=== PATIENT | female | born 1990 | race Caucasian/White ===

== ENCOUNTER 2017-05-12 18:55 | Inpatient (IN) | payer OTHER ==
[2017-05-12] MEDS ORDERED: Metoclopramide 10 MG/2 ML SDV ONE (19:31)
[2017-05-12] MEDS ORDERED: Citric Acid/Sodium Citrate Solution 30 ML Cup ONE (19:31)
[2017-05-12] MEDS ORDERED: Bupivacaine 0.5% 30 ML SDV ONE (19:34)
[2017-05-12] MEDS ORDERED: ceFAZolin 2 GM in Premix Bag 1 BAG IV ONE (19:41)
[2017-05-12] MEDS ORDERED: Sodium Chloride 0.9% 10 ML Syringe FLUSH PRN ×2 (19:41→21:00)
[2017-05-12] MEDS ORDERED: Metoclopramide 10 MG/2 ML SDV IVPUSH ONE (19:41)
[2017-05-12] MEDS ORDERED: Citric Acid/Sodium Citrate Solution 30 ML Cup PO ONE (19:41)
[2017-05-12] MEDS ORDERED: Oxytocin/Lactated Ringers 10 UNIT/1,000 ML BAG IV SCH (19:45)
[2017-05-12] MEDS ORDERED: Ondansetron 4 MG/2 ML SDV ONE (19:49)
[2017-05-12] MEDS ORDERED: Morphine PF 10 MG/10 ML SDV ONE (19:49)
[2017-05-12] MEDS ORDERED: Lactated Ringers 2,000 ML ONE (19:49)
[2017-05-12] MEDS ORDERED: ceFAZolin 1 GM Vial ONE (19:49)
[2017-05-12] MEDS ORDERED: Oxytocin 10 Units/1 ML SDV ONE ×2 (19:49→20:21)
[2017-05-12] MEDS ORDERED: Ketorolac 30 MG/ML SDV ONE (19:49)
--- NOTE | 2017-05-12 19:50 | PCM.LDHP ---
L&D History of Present Illness - General Date of Service: 05/12/17 Admit Problem/Dx: Patient Status Order with Admit Dx/Problem 05/12/17 19:41 Patient Status [ADT] Routine Admission Diagnosis/Problem Admission Diagnosis/Problem Source of Information: Patient History Limitations: Reports: No Limitations - History of Present Illness Introduction:: 26-year-old 000 patient GREG 05/31/1737+ weeks estimated gestational age patient is a [facility] blood type is O+ antibody screen negative rubella is immune hemoglobin hematocrit 31 741.2 and 11/08/16 lateness 183,000 hepatitis B surface antigen was negative the HIV was normal on 11/08/16 GC and chlamydia negative on 11/08/16 urine culture normal 11/08/16 patient presented to labor and delivery with irregular contractions heart rate 167 decreased beat-to- beat variability with subtle decelerations and scalp stimulation produced a deceleration relevant acceleration cervix is closed and talk with the patient and her and both in agreement with proceeding with section as patient is not close to delivery Timing/Duration: Reports: minutes: Location, : Reports: Abdomen Severity: Mild Pain Score: 7 Improves with: Reports: None Worsens with: Reports: None Associated Symptoms: Reports: N - Related Data Allergies/Adverse Reactions: Allergies Allergy/AdvReac Type Severity Reaction Status Date / Time No Known Allergies Allergy Verified 05/12/17 19:40 Past Medical History : 1 Para: 0 (0000) LMP (Approximate): H&P Review of Systems - Review of Systems: Review Of Systems: See Below General: Reports: No Symptoms HEENT: Reports: No Symptoms Pulmonary: Reports: No Symptoms Cardiovascular: Reports: No Symptoms Gastrointestinal: Reports: No Symptoms Genitourinary: Reports: No Symptoms Musculoskeletal: Reports: No Symptoms Skin: Reports: No Symptoms Psychiatric: Reports: No Symptoms Neurological: Reports: No Symptoms Hematologic/Lymphatic: Reports: No Symptoms Immunologic: Reports: No Symptoms L&D Exam - Exam Exam: See Below - OB Specific Fundal Height In cm: 37 Contraction Duration (sec): 60 Contraction Intensity: Mild to Moderate Movement: Active Heart Tones: Present Heart Tones per Min: 170 Heart Rate (FHR) Variability: Minimal (0-5 bpm) Presentation: Vertex - Hdz Score Hdz Score Cervix Position: Posterior Hdz Score Consistency: Soft Hdz Score Effacement: 0-30% Hdz Score Dilation: Closed Hdz Score Infant's Station: -1 ,0 Hdz Score Total: 4 - Exam General: Alert, Oriented HEENT: Mucosa Moist & [place] Neck: Supple, Trachea Midline Lungs: Clear to Auscultation, Normal Respiratory Effort Cardiovascular: Regular Rate, Regular Rhythm Abdomen: Normal Bowel Sounds, Soft, Pelvis Stable Genitourinary: Normal external exam Extremities: Normal Inspection Skin: Warm, Dry, Intact Psychiatric: Alert, Normal Affect, Normal Mood - Problem List (1) 37 weeks gestation of SNOMED Code(s): 83851808 ICD Code: Z3A.37 - 37 WEEKS GESTATION OF Status: Acute Current Visit: Yes (2) Non-reassuring heart rate with late deceleration SNOMED Code(s): 137851222, 674817200 ICD Code: O76 - ABNLT IN HEART RATE AND RHYTHM COMP LABOR AND DELIVERY Status: Acute Current Visit: Yes Problem List Initiated/Reviewed/Updated: No Orders Last 24hrs: Active Orders 24 hr Category Date Time Status Patient Status [ADT] Routine ADT 05/12/17 19:41 Active Communication Order [RC] ROUTINE Care 05/12/17 19:41 Active Heart Tones [RC] PER UNIT ROUTINE Care 05/12/17 19:41 Active Peripheral IV Care [RC] . DIRECTED Care 05/12/17 19:41 Active Procedure Site Prep Instruct [RC] ASDIRECTED Care 05/12/17 19:41 Active Urinary Catheter Assessment [RC] ASDIRECTED Care 05/12/17 19:41 Active Verify Patient Consent Obtain [RC] PER UNIT ROUTINE Care 05/12/17 19:41 Active Vital Signs [RC] PFP Care 05/12/17 19:41 Active Nothing Per Oral Diet [DIET] Diet 05/12/17 Dinner Active CBC WITH AUTO DIFF [HEME] Stat Lab 05/12/17 19:41 Ordered TYPE AND SCREEN [BBK] Routine Lab 05/12/17 19:41 Ordered Citric Acid/Sodium Citrate [Bicitra Solution] Med 05/12/17 19:41 Once 30 ml PO ONETIME ONE Lactated Ringers [Ringers, Lactated] 1,000 ml Med 05/12/17 19:45 Ordered IV ASDIRECTED Metoclopramide [Reglan] Med 05/12/17 19:41 Once 10 mg IVPUSH ONETIME ONE Oxytocin/Lactated Ringers [Pitocin in LR 10 Units/1,000 Med 05/12/17 19:45 Ordered ML] 10 unit in 1,000 ml IV ASDIRECTED Sodium Chloride 0.9% [Saline Flush] Med 05/12/17 19:41 Ordered 10 ml FLUSH ASDIRECTED PRN ceFAZolin [Ancef] 2 gm Med 05/12/17 19:41 Ordered Premix Bag 1 bag IV ONETIME Peripheral IV Insertion Adult [OM.PC] Routine Oth 05/12/17 19:41 Ordered Schedule Procedure [COMM] Per Unit Routine Oth 05/12/17 19:41 Ordered Resuscitation Status Routine Resus Stat 05/12/17 19:41 Ordered Medication Orders Citric Acid/Sodium Citrate (Bicitra Solution) 30 ml PO ONETIME ONE Stop: 05/12/17 19:42 Lactated Ringer's (Ringers, Lactated) 1,000 mls @ 125 mls/hr IV ASDIRECTED KELLY Oxytocin/Lactated Ringer's (Pitocin In Lr 10 Units/1,000 Ml) 10 unit in 1,000 mls @ 100 mls/hr IV ASDIRECTED KELLY PRN Reason: Protocol Cefazolin Sodium/Dextrose 2 gm (/ Premix) 50 mls @ 100 mls/hr IV ONETIME ONE Stop: 05/12/17 20:10 Metoclopramide HCl (Reglan) 10 mg IVPUSH ONETIME ONE Stop: 05/12/17 19:42 Sodium Chloride (Saline Flush) 10 ml FLUSH ASDIRECTED PRN PRN Reason: Keep Vein Open Assessment/Plan Comment:: Plan considering patient's nonreassuring heart rate pattern and lack of cervical dilatation will proceed with section
[2017-05-12] MEDS: Lactated Ringers 1,000 ML IV SCH ×2 (19:54→19:55)
[2017-05-12] MEDS ORDERED: fentaNYL 100 MCG/2 ML SDV IVPUSH PRN (20:23)
[2017-05-12] MEDS ORDERED: Meperidine PF 50 MG/ML Syringe IVPUSH PRN (20:23)
[2017-05-12] MEDS ORDERED: Ondansetron 4 MG/2 ML SDV IVPUSH PRN (20:23)
[2017-05-12] MEDS ORDERED: diphenhydrAMINE 50 MG/ML SDV IVPUSH PRN ×2 (20:23→21:00)
[2017-05-12] MEDS ORDERED: ePHEDrine 50 MG/ML SDV IVPUSH PRN ×2 (20:23→21:00)
--- NOTE | 2017-05-12 20:51 | PCM.POSTAN ---
POST ANESTHESIA ASSESSMENT - MENTAL STATUS Mental Status: alert, oriented - VITAL SIGNS Pulse Rate: 73 SaO2: 99 Resp Rate: 14 Blood Pressure: 105/60 Temperature: 97.3 F - RESPIRATORY Respiratory Status: respiratory rate WNL, airway patent, O2 saturation stable, supplemental oxygen - CARDIOVASCULAR CV Status: pulse rate WNL, blood pressure stable - GASTROINTESTINAL GI Status: no symptoms - PAIN Pain Score: 0 - POST OP HYDRATION Hydration Status: adequate & stable
--- NOTE | 2017-05-12 20:52 | PCM.OPNOTE ---
- General Post-Op/Procedure Note Date of Surgery/Procedure: 05/12/17 Operative Procedure(s): Low segment transverse Pre Op Diagnosis: 37 weeks estimated gestational age, nonreassuring heart rate pattern with tachycardia and decreased [id number] variability and decelerations Post-Op Diagnosis: Same plus nuchal cord 3 tight Anesthesia Technique: Spinal Primary Surgeon: Rodo Rice Secondary Surgeon: Hammad (Son RN) Anesthesia Provider: Geri Daniels [employer] Agent: Samreen Cruz (MS3) Fluid Replacement, Intraop: 1,500 Output, Urine Amount: 700 EBL in mLs: 800 Drain/Tube Comments:: Irizarry catheter Complications: None Condition: Good Free Text/Narrative:: Patient was transported to operating room #1 and placed under spinal anesthesia in the supine position with wedge under the right hip and right flank Irizarry catheter placed to gravity drainage prepared and draped in a sterile fashion timeout performed confirming name date of and procedure as section adequate level of anesthesia was confirmed was brought to the operating room 20 mL of 0.5% Marcaine without epinephrine injected area of the planned Pfannenstiel incision and the Pfannenstiel incision was made and care was sharp section to into the anterior fascia the peritoneal cavity was entered without difficulty bladder flap created pushed caudad low segment transverse section was performed delivering a male born at [address] Amor daycare director in attendance at delivery Apgars 5/9 weight 6 lbs. 2 oz. nuchal cord 3 tight the nuchal cord could not be reduced over the shoulders or over the head crossclamped twice cut and the triple cord was reduced head delivered shoulders followed shortly without difficulty and handed to Dr. Amor. Cord blood collected from normal three-vessel cord placenta removed manually and the cavity inspected remnants of membranes removed sponge needle pack asthma sharp count correct 1 cervical patency assured and the uterine incision closed in 2 layers first layer running locking suture of #0 Monocryl second layer horizontal imbricating modified Lembert 0 Monocryl both tubes and ovaries were normal clot screen from the gutters and cul -de-sac the uterine incision inspected no bleeding uterus replaced into the abdominal cavity reinspected at the operative site no bleeding sponge needle pack asthma sharp count correct 2 and the anterior fascia closed with #1 PDS running suture 3 interrupted sutures of 0 Monocryl placed in the subcutaneous tissue and the skin was closed with subcuticular 3-0 Monocryl on Dirk needle Dermabond Preneo applied no blood transfusions required clots were cleaned from the vagina at the end of the procedure and patient transported postanesthesia care unit in satisfactory condition
--- NOTE | 2017-05-12 20:53 | PCM.PREANE ---
Preanesthetic Assessment - Anesthesia/Transfusion/Family Hx Anesthesia History: No Prior Anesthesia Family History of Anesthesia Reaction: No Transfusion History: No Prior Transfusion(s) - Review of Systems General: No Symptoms Pulmonary: No Symptoms Cardiovascular: No Symptoms Gastrointestinal: No symptoms Neurological: No Symptoms Other: Reports: None - Physical Assessment NPO Status Date: 05/12/17 NPO Status Time: 19:00 Pulse: 73 O2 Sat by Pulse Oximetry: 99 Respiratory Rate: 14 Blood Pressure: 105/60 Temperature: 97.3 F Vital Signs: Last Vital Signs Temp 97.3 F 05/12/17 20:51 Pulse 73 05/12/17 20:51 Resp 14 05/12/17 20:51 BP 105/60 05/12/17 20:51 Pulse Ox 99 05/12/17 20:51 Height: 5 ft 6 in Weight: 73.936 kg ASA Class: 2E Mental Status: Alert & Oriented x3 Airway Class: Mallampati = 1 Dentition: Reports: Normal Dentition Thyro-Mental Finger Breadths: 3 Mouth Opening Finger Breadths: 3 ROM/Head Extension: Full Lungs: Clear to auscultation, Normal respiratory effort Cardiovascular: Regular Rate, Regular Rhythm, No Murmurs - Lab Values: Laboratory Last Values WBC 10.77 K/mm3 (3.98-10.04) H 05/12/17 19:45 RBC 3.67 M/mm3 (3.98-5.22) L 05/12/17 19:45 Hgb 9.8 gm/L (11.2-15.7) L 05/12/17 19:45 Hct 30.6 % (34.1-44.9) L 05/12/17 19:45 MCV 83.4 fl (79.4-94.8) 05/12/17 19:45 MCH 26.7 pg (25.6-32.2) 05/12/17 19:45 MCHC 32.0 g/dl (32.2-35.5) L 05/12/17 19:45 RDW Std Deviation 39.6 fL (36.4-46.3) 05/12/17 19:45 Plt Count 187 K/mm3 (182-369) 05/12/17 19:45 MPV 10.3 fl (9.4-12.3) 05/12/17 19:45 Neut % (Auto) 71.5 % (34.0-71.1) H 05/12/17 19:45 Lymph % (Auto) 15.6 % (19.3-51.7) L 05/12/17 19:45 Steele % (Auto) 12.0 % (4.7-12.5) 05/12/17 19:45 Eos % (Auto) 0.4 (0.7-5.8) L 05/12/17 19:45 Baso % (Auto) 0.1 % (0.1-1.2) 05/12/17 19:45 Neut # (Auto) 7.71 K/mm3 (1.56-6.13) H 05/12/17 19:45 Lymph # (Auto) 1.68 K/mm3 (1.18-3.74) 05/12/17 19:45 Steele # (Auto) 1.29 K/mm3 (0.24-0.36) H 05/12/17 19:45 Eos # (Auto) 0.04 K/mm3 (0.04-0.36) 05/12/17 19:45 Baso # (Auto) 0.01 K/mm3 (0.01-0.08) 05/12/17 19:45 - Allergies Allergies/Adverse Reactions: Allergies Allergy/AdvReac Type Severity Reaction Status Date / Time No Known Allergies Allergy Verified 05/12/17 19:40 - Blood Blood Available: No - Acknowledgements Anesthesia Type Planned: Spinal Pt an Appropriate Candidate for the Planned Anesthesia: Yes Alternatives and Risks of Anesthesia Discussed w Pt/Guardian: Yes Pt/Guardian Understands and Agrees with Anesthesia Plan: Yes PreAnesthesia Questionnaire - Past Health History Medical/Surgical History: Denies Medical/Surgical History Cardiovascular History: Reports: None Respiratory History: Reports: None Gastrointestinal History: Reports: GERD (with preg) - History Comment History Comment: vits for home meds and tums prn - SUBSTANCE USE Smoking Status *Q: Never Smoker Tobacco Use Within Last Twelve Months: No Second Hand Smoke Exposure: No Days Per Week of Alcohol Use: 0 Recreational Drug Use History: No - CURRENT (IN HOUSE) MEDS Current Meds: Current Medications Diphenhydramine HCl (Benadryl) 25 mg IVPUSH Q6H PRN PRN Reason: pruritis Ephedrine Sulfate (Ephedrine Sulfate) 5 mg IVPUSH ASDIRECTED PRN PRN Reason: Hypotension Fentanyl (Sublimaze) 50 mcg IVPUSH Q5M PRN PRN Reason: Pain Lactated Ringer's (Ringers, Lactated) 1,000 mls @ 125 mls/hr IV ASDIRECTED [facility] Last Admin: 05/12/17 19:55 Dose: 125 mls/hr Oxytocin/Lactated Ringer's (Pitocin In Lr 10 Units/1,000 Ml) 10 unit in 1,000 mls @ 100 mls/hr IV ASDIRECTED [facility] PRN Reason: Protocol Meperidine HCl (Demerol) 12.5 mg IVPUSH ONETIME PRN PRN Reason: shivering Stop: 05/13/17 20:24 Ondansetron HCl (Zofran) 4 mg IVPUSH ONETIME PRN PRN Reason: Nausea/Vomiting Sodium Chloride (Saline Flush) 10 ml FLUSH ASDIRECTED PRN PRN Reason: Keep Vein Open Discontinued Medications Bupivacaine HCl (Marcaine 0.5%) Confirm Administered Dose 30 ml .ROUTE .STK-MED ONE Stop: 05/12/17 19:35 Cefazolin Sodium (Ancef) Confirm Administered Dose 2 gm .ROUTE .STK-MED ONE Stop: 05/12/17 19:50 Citric Acid/Sodium Citrate (Bicitra Solution) Confirm Administered Dose 30 ml .ROUTE .STK-MED ONE Stop: 05/12/17 19:32 Citric Acid/Sodium Citrate (Bicitra Solution) 30 ml PO ONETIME ONE Stop: 05/12/17 19:42 Last Admin: 05/12/17 19:53 Dose: 30 ml Lactated Ringer's (Ringers, Lactated) Confirm Administered Dose 2,000 mls @ as directed .ROUTE .STK-MED ONE Stop: 05/12/17 19:50 Cefazolin Sodium/Dextrose 2 gm (/ Premix) 50 mls @ 100 mls/hr IV ONETIME ONE Stop: 05/12/17 20:10 Ketorolac Tromethamine (Toradol) Confirm Administered Dose 30 mg .ROUTE .STK- MED ONE Stop: 05/12/17 19:50 Metoclopramide HCl (Reglan) Confirm Administered Dose 10 mg .ROUTE .STK-MED ONE Stop: 05/12/17 19:32 Metoclopramide HCl (Reglan) 10 mg IVPUSH ONETIME ONE Stop: 05/12/17 19:42 Last Admin: 05/12/17 19:53 Dose: 10 mg Morphine Sulfate (Duramorph Pf) Confirm Administered Dose 10 mg .ROUTE .STK-MED ONE Stop: 05/12/17 19:50 Ondansetron HCl (Zofran) Confirm Administered Dose 4 mg .ROUTE .STK-MED ONE Stop: 05/12/17 19:50 Oxytocin (Pitocin) Confirm Administered Dose 10 unit .ROUTE .STK-MED ONE Stop: 05/12/17 19:50 Oxytocin (Pitocin) Confirm Administered Dose 10 unit .ROUTE .STK-MED ONE Stop: 05/12/17 20:22
[2017-05-12] MEDS ORDERED: Lanolin 100% Cream 7 GM Tube TOP PRN (21:00)
[2017-05-12] MEDS ORDERED: Dextrose 5%-Lactated Ringers 1,000 ML IV SCH (21:00)
[2017-05-12] MEDS ORDERED: Acetaminophen/oxyCODONE 325-5 MG Tab PO PRN (21:00)
[2017-05-12] MEDS ORDERED: Docusate Sodium 100 MG Cap PO PRN (21:00)
[2017-05-12] MEDS ORDERED: Dextrose 5%-0.45% NaCl 1,000 ML IV SCH (21:00)
[2017-05-12] MEDS ORDERED: Ondansetron 4 MG/2 ML SDV IV PRN (21:00)
[2017-05-12] MEDS ORDERED: Acetaminophen 325 MG Tab PO PRN (21:00)
[2017-05-12] MEDS ORDERED: Naloxone 0.4 MG/ML SDV IVPUSH PRN (21:00)
[2017-05-12] MEDS ORDERED: Calcium Carbonate 500 MG Tab.Chew PO PRN (23:48)
[2017-05-13] MEDS: Ketorolac 30 MG/ML SDV IVPUSH SCH ×3 (02:31→18:16)
[2017-05-13] MEDS: Simethicone 80 MG Tab.Chew PO SCH ×4 (02:39→18:16)
--- NOTE | 2017-05-13 08:27 | PCM.SN ---
- Free Text/Narrative Note: Post day 1 Afebrile incision normal uterus involuting normally no heavy vaginal bleeding no leg cramping
--- NOTE | 2017-05-13 15:22 | PCM48HPAN ---
Post Anesthesia Note - EVALUATION WITHIN 48HRS OF ANESTHETIC Vital Signs in Normal Range: Yes Patient Participated in Evaluation: Yes Respiratory Function Stable: Yes Airway Patent: Yes Cardiovascular Function Stable: Yes Hydration Status Stable: Yes Pain Control Satisfactory: Yes Nausea and Vomiting Control Satisfactory: Yes Mental Status Recovered: Yes - COMMENTS/OBSERVATIONS Free Text/Narrative:: Patient did not have any complaints. No residual LE weakness, headaches, or back pain.
[2017-05-13] MEDS ORDERED: Ketorolac 30 MG/ML SDV ONE (18:08)
[2017-05-14] MEDS: Simethicone 80 MG Tab.Chew PO SCH ×3 (01:07→13:29)
[2017-05-14] MEDS: Ibuprofen 600 MG Tab PO PRN ×2 (06:51→15:49)
--- NOTE | 2017-05-14 10:22 | PCM.SN ---
- Free Text/Narrative Note: POD#2 Afebrile, not heavy vaginal bleeding, doing well, will go home tomorrow.
[2017-05-15] MEDS: Simethicone 80 MG Tab.Chew PO SCH ×2 (03:48→11:03)
--- NOTE | 2017-05-15 07:38 | PCM.DCSUM1 ---
Discharge Summary - Hospital Course Free Text/Narrative:: [facility], [place], operated by [facility] Post-Op/Procedure Note Patient Name: TERESA CASTELLON Date of : 89 Patient Status: Inpatient Attending Provider: Rodo Rice Date: 05/12/17 20:45 Initialization Date: 05/12/17 20:45 - General Post-Op/Procedure Note Date of Surgery/Procedure: 05/12/17 Operative Procedure(s): Low segment transverse Pre Op Diagnosis: 37 weeks estimated gestational age, nonreassuring heart rate pattern with tachycardia and decreased [id number] variability and decelerations Post-Op Diagnosis: Same plus nuchal cord 3 tight Anesthesia Technique: Spinal Primary Surgeon: Rodo Rice Secondary Surgeon: Hammad (Son JUNE) Anesthesia Provider: Geri Daniels Shot Coat Tender: Samreen Cruz (MS3) Fluid Replacement, Intraop: 1,500 Output, Urine Amount: 700 EBL in mLs: 800 Drain/Tube Comments:: Irizarry catheter Complications: None Condition: Good Free Text/Narrative:: Patient was transported to operating room #1 and placed under spinal anesthesia in the supine position with wedge under the right hip and right flank Irizarry catheter placed to gravity drainage prepared and draped in a sterile fashion timeout performed confirming name date of and procedure as section adequate level of anesthesia was confirmed was brought to the operating room 20 mL of 0.5% Marcaine without epinephrine injected area of the planned Pfannenstiel incision and the Pfannenstiel incision was made and care was sharp section to into the anterior fascia the peritoneal cavity was entered without difficulty bladder flap created pushed caudad low segment transverse section was performed delivering a male born at [address] Amor clerk secretary in attendance at delivery Apgars 5/9 weight 6 lbs. 2 oz. nuchal cord 3 tight the nuchal cord could not be reduced over the shoulders or over the head crossclamped twice cut and the triple cord was reduced head delivered shoulders followed shortly without difficulty and handed to Dr. Amor. Cord blood collected from normal three-vessel cord placenta removed manually and the cavity inspected remnants of membranes removed sponge needle pack asthma sharp count correct 1 cervical patency assured and the uterine incision closed in 2 layers first layer running locking suture of #0 Monocryl second layer horizontal imbricating modified Lembert 0 Monocryl both tubes and ovaries were normal clot screen from the gutters and cul -de-sac the uterine incision inspected no bleeding uterus replaced into the abdominal cavity reinspected at the operative site no bleeding sponge needle pack asthma sharp count correct 2 and the anterior fascia closed with #1 PDS running suture 3 interrupted sutures of 0 Monocryl placed in the subcutaneous tissue and the skin was closed with subcuticular 3-0 Monocryl on Dirk needle Dermabond Preneo applied no blood transfusions required clots were cleaned from the vagina at the end of the procedure and patient transported postanesthesia care unit in satisfactory condition HPI Initial Comments: [facility], [place], operated by [facility] Post-Op/Procedure Note Patient Name: TERESA CASTELLON Date of : 89 Patient Status: Inpatient Attending Provider: Rodo Rice Date: 05/12/17 20:45 Initialization Date: 05/12/17 20:45 - General Post-Op/Procedure Note Date of Surgery/Procedure: 05/12/17 Operative Procedure(s): Low segment transverse Pre Op Diagnosis: 37 weeks estimated gestational age, nonreassuring heart rate pattern with tachycardia and decreased [id number]-hmcl variability and decelerations Post-Op Diagnosis: Same plus nuchal cord 3 tight Anesthesia Technique: Spinal Primary Surgeon: Rodo Rice Secondary Surgeon: Hammad Youngblood RN) Anesthesia Provider: Geri Daniels Shot Coat Tender: Samreen Cruz (MS3) Fluid Replacement, Intraop: 1,500 Output, Urine Amount: 700 EBL in mLs: 800 Drain/Tube Comments:: Irizarry catheter Complications: None Condition: Good Free Text/Narrative:: Patient was transported to operating room #1 and placed under spinal anesthesia in the supine position with wedge under the right hip and right flank Irizarry catheter placed to gravity drainage prepared and draped in a sterile fashion timeout performed confirming name date of and procedure as section adequate level of anesthesia was confirmed was brought to the operating room 20 mL of 0.5% Marcaine without epinephrine injected area of the planned Pfannenstiel incision and the Pfannenstiel incision was made and care was sharp section to into the anterior fascia the peritoneal cavity was entered without difficulty bladder flap created pushed caudad low segment transverse section was performed delivering a male born at [address] Amor clerk secretary in attendance at delivery Apgars 5/9 weight 6 lbs. 2 oz. nuchal cord 3 tight the nuchal cord could not be reduced over the shoulders or over the head crossclamped twice cut and the triple cord was reduced head delivered shoulders followed shortly without difficulty and handed to Dr. Amor. Cord blood collected from normal three-vessel cord placenta removed manually and the cavity inspected remnants of membranes removed sponge needle pack asthma sharp count correct 1 cervical patency assured and the uterine incision closed in 2 layers first layer running locking suture of #0 Monocryl second layer horizontal imbricating modified Lembert 0 Monocryl both tubes and ovaries were normal clot screen from the gutters and cul -de-sac the uterine incision inspected no bleeding uterus replaced into the abdominal cavity reinspected at the operative site no bleeding sponge needle pack asthma sharp count correct 2 and the anterior fascia closed with #1 PDS running suture 3 interrupted sutures of 0 Monocryl placed in the subcutaneous tissue and the skin was closed with subcuticular 3-0 Monocryl on Dirk needle Dermabond Preneo applied no blood transfusions required clots were cleaned from the vagina at the end of the procedure and patient transported postanesthesia care unit in satisfactory condition Brief History: [facility], [place], operated by [facility] . Post-Op/Procedure Note. Patient Name: TERESA CASTELLON [facility] Record Number: [id number]. Date of : [birth year]Patient Status: Inpatient. Attending Provider: Rodo Rice Number: [id number]. Date: 05/12/17 20:45Initialization Date: 20:45. - General Post-Op/Procedure Note. Date of Surgery/Procedure: . Operative Procedure(s): Low segment transverse . Pre Op Diagnosis: 37 weeks estimated gestational age, nonreassuring heart rate pattern with tachycardia and decreased hewi-ly-dvmu variability and decelerations. Post-Op Diagnosis: Same plus nuchal cord 3 tight. Anesthesia Technique: Spinal. Primary Surgeon: Rodo Rice. Secondary Surgeon: Hammad Youngblood RN). Anesthesia Provider: Geri Daniels. Shot Coat Tender: Samreen Cruz (MS3). Fluid Replacement, Intraop: 1,500. Output, Urine Amount: 700. EBL in mLs: 800. Drain/Tube Comments:: Irizarry catheter. Complications: None. Condition: Good. Free Text/Narrative:: Patient was transported to operating room #1 and placed under spinal anesthesia in the supine position with wedge under the right hip and right flank Irizarry catheter placed to gravity drainage prepared and draped in a sterile fashion timeout performed confirming name date of and procedure as section adequate level of anesthesia was confirmed was brought to the operating room 20 mL of 0.5% Marcaine without epinephrine injected area of the planned Pfannenstiel incision and the Pfannenstiel incision was made and care was sharp section to into the anterior fascia the peritoneal cavity was entered without difficulty bladder flap created pushed caudad low segment transverse section was performed delivering a male born at 2015 hrs. on Sundays05/12/17 Dr. Amor clerk secretary in attendance at delivery Apgars 5/9 weight 6 lbs. 2 oz. nuchal cord 3 tight the nuchal cord could not be reduced over the shoulders or over the head crossclamped twice cut and the triple cord was reduced head delivered shoulders followed shortly without difficulty and handed to Dr. Amor. Cord blood collected from normal three-vessel cord placenta removed manually and the cavity inspected remnants of membranes removed sponge needle pack asthma sharp count correct 1 cervical patency assured and the uterine incision closed in 2 layers first layer running locking suture of #0 Monocryl second layer horizontal imbricating modified Lembert 0 Monocryl both tubes and ovaries were normal clot screen from the gutters and cul-de-sac the uterine incision inspected no bleeding uterus replaced into the abdominal cavity reinspected at the operative site no bleeding sponge needle pack asthma sharp count correct 2 and the anterior fascia closed with #1 PDS running suture 3 interrupted sutures of 0 Monocryl placed in the subcutaneous tissue and the skin was closed with subcuticular 3-0 Monocryl on Dirk needle Dermabond Preneo applied no blood transfusions required clots were cleaned from the vagina at the end of the procedure and patient transported postanesthesia care unit in satisfactory condition - Discharge Data Discharge Date: 05/15/17 Discharge Disposition: Home, Self-Care 01 Condition: Good - Discharge Diagnosis/Problem(s) (1) 37 weeks gestation of SNOMED Code(s): 00075435 ICD Code: Z3A.37 - 37 WEEKS GESTATION OF Status: Acute Current Visit: Yes (2) Non-reassuring heart rate with late deceleration SNOMED Code(s): 885575548, 274103746 ICD Code: O76 - ABNLT IN HEART RATE AND RHYTHM COMP LABOR AND DELIVERY Status: Acute Current Visit: Yes (3) Nuchal cord with compression, delivered, current hospitalization SNOMED Code(s): 564102272 ICD Code: O69.1XX0 - LABOR AND DELIVERY COMP BY CORD AROUND NECK, W COMPRSN, UNSP Status: Acute Current Visit: Yes - Patient Summary/Data Operative Procedure(s) Performed: Low segment transverse Complications: None Consults: None Hospital Course: Uneventful - Patient Instructions Diet: Heart Healthy Diet Driving: Do Not Drive (4 weeks or as instructed by Dr. Tejada do not drive for 48 hours after last dose of Percocet) Showering/Bathing: May Shower, No Tub Bathing/Swimming (6 weeks) Wound/Incision Care: Keep Operative Site/Wound Site Clean and Dry Notify Provider of: Fever, Increased Pain, Swelling and Redness, Drainage, Nausea and/or Vomiting - Discharge Plan Prescriptions/Med Rec: Acetaminophen/oxyCODONE [Percocet 325-5 MG] 1 tab PO Q6H PRN #25 tablet PRN Reason: Pain Home Medications: Home Meds Acetaminophen [Tylenol] 650 mg PO Q6H PRN #0 tablet 05/15/17 [Rx] Acetaminophen/oxyCODONE [Percocet 325-5 MG] 1 tab PO Q6H PRN #25 tablet [Rx] Docusate Sodium [Colace] 100 mg PO Q12H PRN #0 cap 05/15/17 [Rx] Ibuprofen [IJD: Ibuprofen] 600 mg PO Q6H PRN #0 tablet 05/15/17 [Rx] Simethicone 80 mg PO PCBED tab.chew 05/15/17 [Rx] Referrals: Carrol Teajda MD [Physician] - (4 weeks) - Discharge Summary/Plan Comment DC Time >30 min.: No - Patient Data Vitals - Most Recent: Last Vital Signs Temp 98.1 F 05/15/17 03:51 Pulse 73 05/15/17 03:51 Resp 15 05/15/17 03:51 BP 122/88 05/15/17 03:51 Pulse Ox 99 05/15/17 03:51 Weight - Most Recent: 163 lb I&O - Last 24 hours: Intake & Output 05/14/17 05/15/17 05/15/17 22:59 06:59 14:59 Intake Total 320 Balance 320 Med Orders - Current: Current Medications Acetaminophen (Tylenol) 650 mg PO Q4H PRN PRN Reason: mild pain or fever Docusate Sodium (Colace) 100 mg PO Q12H PRN PRN Reason: Constipation Emollient Ointment (Lansinoh Hpa) 0 gm TOP ASDIRECTED PRN PRN Reason: Sore Nipples Ibuprofen (Motrin) 600 mg PO Q6H PRN PRN Reason: mild pain or fever Last Admin: 05/14/17 15:49 Dose: 600 mg Oxycodone/Acetaminophen (Percocet 325-5 Mg) 2 tab PO Q4H PRN PRN Reason: Pain (moderate 4-6) Simethicone (Simethicone) 80 mg PO PCBED KELLY Last Admin: 05/15/17 03:48 Dose: Not Given Sodium Chloride (Saline Flush) 10 ml FLUSH ASDIRECTED PRN PRN Reason: Keep Vein Open Discontinued Medications Bupivacaine HCl (Marcaine 0.5%) Confirm Administered Dose 30 ml .ROUTE .STK-MED ONE Stop: 05/12/17 19:35 Last Admin: 05/12/17 20:11 Dose: 20 ml Cefazolin Sodium (Ancef) Confirm Administered Dose 2 gm .ROUTE .STK-MED ONE Stop: 05/12/17 19:50 Citric Acid/Sodium Citrate (Bicitra Solution) Confirm Administered Dose 30 ml .ROUTE .STK-MED ONE Stop: 05/12/17 19:32 Last Admin: 05/12/17 22:35 Dose: Not Given Citric Acid/Sodium Citrate (Bicitra Solution) 30 ml PO ONETIME ONE Stop: 05/12/17 19:42 Last Admin: 05/12/17 19:53 Dose: 30 ml Diphenhydramine HCl (Benadryl) 25 mg IVPUSH Q6H PRN PRN Reason: pruritis Diphenhydramine HCl (Benadryl) 25 mg IVPUSH Q6H PRN PRN Reason: Itching or Nausea Ephedrine Sulfate (Ephedrine Sulfate) 5 mg IVPUSH ASDIRECTED PRN PRN Reason: Hypotension Ephedrine Sulfate (Ephedrine Sulfate) 5 mg IVPUSH SEECOMMENT PRN PRN Reason: Other Fentanyl (Sublimaze) 50 mcg IVPUSH Q5M PRN PRN Reason: Pain Lactated Ringer's (Ringers, Lactated) Confirm Administered Dose 2,000 mls @ as directed .ROUTE .STK-MED ONE Stop: 05/12/17 19:50 Lactated Ringer's (Ringers, Lactated) 1,000 mls @ 125 mls/hr IV ASDIRECTED [facility] Last Admin: 05/12/17 19:55 Dose: 125 mls/hr Oxytocin/Lactated Ringer's (Pitocin In Lr 10 Units/1,000 Ml) 10 unit in 1,000 mls @ 100 mls/hr IV ASDIRECTED [facility] PRN Reason: Protocol Cefazolin Sodium/Dextrose 2 gm (/ Premix) 50 mls @ 100 mls/hr IV ONETIME ONE Stop: 05/12/17 20:10 Last Admin: 05/13/17 02:40 Dose: Not Given Dextrose/Sodium Chloride (Dextrose 5%-1/2 Ns) 1,000 mls @ 125 mls/hr IV ASDIRECTED [facility] Last Admin: 05/13/17 06:06 Dose: 125 mls/hr Dextrose/Lactated Ringer's (Dextrose 5%-Lactated Ringers) 1,000 mls @ 125 mls/ hr IV ASDIRECTED [facility] Stop: 05/13/17 04:59 Last Admin: 05/13/17 00:49 Dose: 125 mls/hr Ketorolac Tromethamine (Toradol) Confirm Administered Dose 30 mg .ROUTE .STK- MED ONE Stop: 05/12/17 19:50 Ketorolac Tromethamine (Toradol) 30 mg IVPUSH Q6H [facility] Stop: 05/13/17 14:31 Last Admin: 05/13/17 18:16 Dose: 30 mg Ketorolac Tromethamine (Toradol) Confirm Administered Dose 30 mg .ROUTE .STK- MED ONE Stop: 05/13/17 18:09 Last Admin: 05/13/17 20:25 Dose: Not Given Meperidine HCl (Demerol) 12.5 mg IVPUSH ONETIME PRN PRN Reason: shivering Stop: 05/13/17 20:24 Last Admin: 05/12/17 20:52 Dose: 12.5 mg Metoclopramide HCl (Reglan) Confirm Administered Dose 10 mg .ROUTE .STK-MED ONE Stop: 05/12/17 19:32 Last Admin: 05/12/17 22:35 Dose: Not Given Metoclopramide HCl (Reglan) 10 mg IVPUSH ONETIME ONE Stop: 05/12/17 19:42 Last Admin: 05/12/17 19:53 Dose: 10 mg Morphine Sulfate (Duramorph Pf) Confirm Administered Dose 10 mg .ROUTE .STK-MED ONE Stop: 05/12/17 19:50 Naloxone HCl (Narcan) 0.1 mg IVPUSH SEECOMMENT PRN PRN Reason: Respiratory Depression Ondansetron HCl (Zofran) Confirm Administered Dose 4 mg .ROUTE .STK-MED ONE Stop: 05/12/17 19:50 Ondansetron HCl (Zofran) 4 mg IVPUSH ONETIME PRN PRN Reason: Nausea/Vomiting Ondansetron HCl (Zofran) 4 mg IV Q8H PRN PRN Reason: Nausea/Vomiting Oxytocin (Pitocin) Confirm Administered Dose 10 unit .ROUTE .STK-MED ONE Stop: 05/12/17 19:50 Oxytocin (Pitocin) Confirm Administered Dose 10 unit .ROUTE .STK-MED ONE Stop: 05/12/17 20:22 Sodium Chloride (Saline Flush) 10 ml FLUSH ASDIRECTED PRN PRN Reason: Keep Vein Open *Q Meaningful Use (DIS) - VTE *Q VTE Criteria *Q: - Stroke *Q Stroke Criteria *Q: - AMI *Q AMI Criteria *Q:
[2017-05-15 11:03] VITALS: BP 112/75
== END 2017-05-15 13:00 | disposition home or self-care (01) | DRG 766 ==
LOC: JD.OBCHECK 18:55 → JD.OB 18:55 → JD.OBCHECK 19:40 → JD.OB 19:43
PROVIDERS: ADMIT Obstetrics & Gynecology; ATTEND Obstetrics & Gynecology
PROC: 10D00Z1 Extraction of Products of Conception, Low, Open Approach (ICD-10-PCS; principal; 2017-05-12)
DX: O76 Abnormality in fetal heart rate and rhythm complicating labor and delivery (principal); O69.81X0 Labor and delivery complicated by cord around neck, without compression, not applicable or unspecified; Z3A.37 37 weeks gestation of pregnancy; Z37.0 Single live birth
CPT/HCPCS: 01961; 36415; 85025; 86850; 86900; 86901; A9270-GY; J0690; J1885; J2175; J2270; J2405; J2590; J2765; J7042; J7120

== ENCOUNTER 2021-04-02 00:49 | Inpatient (IN) | payer OTHER ==
[2021-04-03] MEDS ORDERED: Bupivacaine 0.25% 10 ML SDV ONE
[2021-04-03] MEDS ORDERED: Sodium Chloride 0.9% 10 ML Syringe FLUSH PRN (00:41)
[2021-04-03] MEDS ORDERED: Oxytocin/Lactated Ringers 10 UNIT/1,000 ML BAG IV SCH ×2 (00:45→04:00)
[2021-04-03] MEDS ORDERED: Lidocaine 1% 50 ML MDV INJECT ONE (03:30)
[2021-04-03] MEDS ORDERED: Calcium Carbonate 500 MG Tab.Chew PO PRN (03:30)
[2021-04-03] MEDS ORDERED: Nalbuphine 10 MG/1 ML Vial IVPUSH PRN (03:30)
[2021-04-03] MEDS ORDERED: Ondansetron 4 MG/2 ML SDV IVPUSH PRN ×2 (04:00→08:56)
[2021-04-03] MEDS: Lactated Ringers 1,000 ML IV SCH ×2 (04:30→11:21)
[2021-04-03] MEDS: Acetaminophen 325 MG Tab PO PRN ×2 (04:33→09:34)
--- NOTE | 2021-04-03 06:16 | PCM.LDHP ---
L&D History of Present Illness - General Date of Service: 04/03/21 Admit Problem/Dx: Patient Status Order with Admit Dx/Problem 04/03/21 03:00 Patient Status [ADT] Routine Admission Diagnosis/Problem Admission Diagnosis/Problem 04/03/21 06:06 Marleni is a 30-year-old 3 para 1-0-1-1 female admitted on the a.m. of 04/03/2021 at 39-4/7 weeks gestational age with an GREG of 04/06/2021 for induction of labor. Source of Information: Patient History Limitations: Reports: No Limitations - History of Present Illness Introduction:: Marleni is a 30-year-old 3 para 1-0-1-1 female admitted on the a.m. of 04/03/2021 at 39-4/7 weeks gestational age with an GREG of 04/06/2021 for induction of labor. The process of induction of labor, its risks, benefits, limitations and follow-up along with alternatives including allowing for natural onset of labor discussed in detail with her and her . They appear to understand especially in light of her history of previous section and they wish to proceed. Consent for a trial of labor after section for an attempt at vaginal after section and a consent for repeat section are discussed in detail and are signed by the patient. LONGWALL HEADGATE OPERATOR history: Marleni is a 3 para 1-0-1-1. She had menarche at approximately age 13. Last menstrual period was relatively certain and regular starting on 06/30/2020. Patient has had normal regular cycles, they occur on a monthly basis. She is not using any control at the time of conception. She has had no abnormal Pap smears or STIs in the past. course: Patient was initially seen for this at 6-5/7 weeks gestational age on 08/17/2020. Ultrasound at that time correlated well with her LMP dating. She has had 2 other ultrasounds since that time which correlates very well with her initial dating. Patient was seen on a regular basis throughout the . Her weight gain was from 141 to 169 pounds for 28.8 pound increase. Her vital signs remained stable throughout the course. Fundal height growth has been appropriate. Patient is group B strep negative. She declined genetic testing. She has a history of depression. She desires natural labor but is okay with epidural if necessary. Her [place] depression screen score on 11/16/2020 was 4/30. Previous was done for nonreassuring heart tones. Had some anemia during . She received her Tdap on 02/13/2021 and she is rubella immune. Previous obstetric history: 1. Male infant born 05/12/2017 at 37 weeks gestational age6 pounds 2 oun cesprimary section done for nonreassuring heart tonesspinal anesthetic. Baby delivered at [facility]. Child's name is Yadiel. 2. Spontaneous 03/31/2019 at 6 weeks gestational age. Natural passage of the tissue. Laboratory testing in shows blood to be all positive with a negative antibody screen. Hemoglobin is 13.4 g/dL. Platelets are 235,000. She is rubella immune. Urine culture was negative. Hepatitis B surface antigen and HIV assays were both negative. Chlamydia and gonorrhea tests were both negative. Second trimester laboratory testing showed a hemoglobin that was low at 10.6 g/dL. Patient was asked to get on iron supplementation at that time. Her platelet count at that time was 236,001-hour glucose was 88. Recheck of her hemoglobin on 03/14/2021 was 12.4 g/dL and platelets were 205,000. RPR on 09/21/2020 was nonreactive. Group B strep screen was negative. Allergies: None Medications: 1. vitamins 1 daily 2. Ferrous sulfate 325 mg p.o. daily Past medical history: 1. Miscarriage x1 Past surgical history: 1. times 10/2016 Family history: Mother has hypertension and anemia. Father is alive and well. She has siblings who are healthy. Paternal grandfather is alive but with heart problems, pacemaker and hypertension medications. Maternal grandfather is alive and healthy. Paternal grandmother is secondary to Hodgkin's lymphoma. Paternal grandfather secondary to lung cancerwas a smoker. Maternal aunt with thyroid cancer. No bleeding, clotting, or asthma problems noted in the family. Social history: Patient is . She lives in [place], [place]. She does not use any significant muscle alcohol, drugs or tobacco. Her is Ha souza. Review of systems: In general patient has no complaints. Skin: Negative Lungs: No infectious symptoms or shortness of breath Cardiovascular: No chest pain or exercise intolerance Breasts: No lumps, changes in size, pain, dimpling, discharge or axillary or supraclavicular concerns. GI: Negative : Negative Musculoskeletal: Negative Neurological: Negative Physical exam: In general the patient is well-developed, well-nourished, pleasant female of stated age in no acute distress. Skin is warm dry without lesions. HEENT, neck and back within normal limits. Lungs are clear with good breath sounds in all lung hopper. Cardiovascular exam shows regular and rhythm without murmurs. Breast exam is deferred at this time having been done previously and found to be normal is not repeated at this time. Patient does plan to breast-feed. Abdomen is gravid with fundal height on last evaluation clinic at 38 cm. Baby in a vertex presentation by Moreno maneuver. Genital per digital exam on last evaluation clinic shows cervix to be 1 to 2 cm, 50% effaced, very soft, -3 station, mid position. Baby confirmed to be in a vertex presentation. Extremities and neurological exam are grossly within normal limits. Pain Score: 3 - Related Data Allergies/Adverse Reactions: Allergies Allergy/AdvReac Type Severity Reaction Status Date / Time No Known Allergies Allergy Verified 03/29/21 16:32 Home Medications: Home Meds Iron 65 mg PO BID 03/29/21 [History] Vits #93/Iron Fum/FA [ Formula Tablet] 1 tab PO DAILY 03/29/21 [History] Past Medical History - Past Health History Medical/Surgical History: Denies Medical/Surgical History Cardiovascular History: Reports: None Respiratory History: Reports: None Gastrointestinal History: Reports: GERD (with preg) - History Comment History Comment: vits for home meds and tums prn Social & Family History - Caffeine Use Caffeine Use: Reports: None H&P Review of Systems - Review of Systems: Review Of Systems: See Below L&D Exam - Exam Exam: See Below - Vital Signs Weight: 77.111 kg - Patient Data Lab Results Last 24 hrs: Laboratory Results - last 24 hr 04/03/21 04/03/21 04/03/21 Range/Units 03:35 03:47 03:47 WBC 9.78 (3.98-10.04) K/mm3 RBC 4.13 (3.98-5.22) M/mm3 Hgb 12.2 (11.2-15.7) gm/dl Hct 37.0 (34.1-44.9) % MCV 89.6 (79.4-94.8) fl MCH 29.5 (25.6-32.2) pg MCHC 33.0 (32.2-35.5) g/dl RDW Std Deviation 46.7 H (36.4-46.3) fL Plt Count 184 (182-369) K/mm3 MPV 9.9 (9.4-12.3) fl Neut % (Auto) 69.9 (34.0-71.1) % Lymph % (Auto) 18.4 L (19.3-51.7) % Clay % (Auto) 10.7 (4.7-12.5) % Eos % (Auto) 0.4 L (0.7-5.8) Baso % (Auto) 0.1 (0.1-1.2) % Neut # (Auto) 6.83 H (1.56-6.13) K/mm3 Lymph # (Auto) 1.80 (1.18-3.74) K/mm3 Clay # (Auto) 1.05 H (0.24-0.36) K/mm3 Eos # (Auto) 0.04 (0.04-0.36) K/mm3 Baso # (Auto) 0.01 (0.01-0.08) K/mm3 SARS-CoV-2 RNA (LEOBARDO) Negative (NEGATIVE) Blood Type O POSITIVE Gel Antibody Screen Negative Result Diagrams: 04/03/21 03:47 Problem List Initiated/Reviewed/Updated: Yes Orders Last 24hrs: Active Orders 24 hr Category Date Time Status Patient Status [ADT] Routine ADT 04/03/21 03:00 Active Activity as Tolerated [RC] PFP Care 04/03/21 00:41 Active Communication Order [RC] ASDIRECTED Care 04/03/21 00:41 Active Heart Tones [RC] ASDIRECTED Care 04/03/21 00:42 Active Non Stress Test [RC] PER UNIT ROUTINE Care 04/03/21 00:41 Active Notify Provider [RC] PFP Care 04/03/21 00:41 Active Notify Provider [RC] PRN Care 04/03/21 00:41 Active Peripheral IV Care [RC] . DIRECTED Care 04/03/21 00:42 Active Vital Signs [RC] PER UNIT ROUTINE Care 04/03/21 00:41 Active Regular Diet [DIET] Diet 04/03/21 Breakfast Active RAPID PLASMA REAGIN,RPR [CHEM] Timed Lab 04/03/21 03:47 Received Acetaminophen [TylenoL] Med 04/03/21 03:30 Active 650 mg PO Q4H PRN Calcium Carbonate [Tums] Med 04/03/21 03:30 Active 1,000 mg PO Q2H PRN Lactated Ringers [Ringers, Lactated] 1,000 ml Med 04/03/21 00:45 Active IV ASDIRECTED Nalbuphine [Nubain] Med 04/03/21 03:30 Active 10 mg IVPUSH Q2H PRN Ondansetron [Zofran] Med 04/03/21 04:00 Active 4 mg IVPUSH Q4H PRN Oxytocin/Lactated Ringers [Pitocin in LR 10 Units/1,000 Med 04/03/21 00:45 Active ML] 10 unit in 1,000 ml IV .CONTINUOUS Oxytocin/Lactated Ringers [Pitocin in LR 10 Units/1,000 Med 04/03/21 04:00 Active ML] 10 unit in 1,000 ml IV TITRATE Sodium Chloride 0.9% [Saline Flush] Med 04/03/21 00:41 Active 10 ml FLUSH ASDIRECTED PRN Electronic Heart Tones Ext w TOCO [WOMSER] Oth 04/03/21 00:41 Ordered Routine Electronic Heart Tones Internal [WOMSER] Per Unit Oth 04/03/21 00:41 Ordered Routine Peripheral IV Insertion Adult [OM.PC] Routine Oth 04/03/21 00:41 Ordered Resuscitation Status Routine Resus Stat 04/03/21 00:41 Ordered Medication Orders Acetaminophen (Acetaminophen 325 Mg Tab) 650 mg PO Q4H PRN PRN Reason: Pain (Mild 1-3) and fever Last Admin: 04/03/21 04:33 Dose: 650 mg Documented by: MCCRTAM Calcium Carbonate/Glycine (Calcium Carbonate 500 Mg Tab.Chew) 1,000 mg PO Q2H PRN PRN Reason: Indigestion Oxytocin/Lactated Ringer's (Pitocin In Lr 10 Units/1,000 Ml) 10 unit in 1,000 mls @ 500 mls/hr IV .CONTINUOUS KELLY Oxytocin/Lactated Ringer's (Pitocin In Lr 10 Units/1,000 Ml) 10 unit in 1,000 mls @ 12 mls/hr IV TITRATE KELLY; Protocol Last Titration: 04/03/21 06:00 Dose: 4 munits/min, 24 mls/hr Documented by: Admin: 04/03/21 05:20 Dose: 2 munits/min, 12 mls/hr Documented by: BEATRIS Lactated Ringer's (Ringers, Lactated) 1,000 mls @ 100 mls/hr IV ASDIRECTED KELLY Last Admin: 04/03/21 04:30 Dose: 100 mls/hr Documented by: BEATRIS Nalbuphine HCl (Nalbuphine 10 Mg/1 Ml Vial) 10 mg IVPUSH Q2H PRN PRN Reason: Pain Ondansetron HCl (Ondansetron 4 Mg/2 Ml Sdv) 4 mg IVPUSH Q4H PRN PRN Reason: Nausea/Vomiting Sodium Chloride (Sodium Chloride 0.9% 10 Ml Syringe) 10 ml FLUSH ASDIRECTED PRN PRN Reason: Keep Vein Open Assessment/Plan Comment:: 1. Marleni is a 30-year-old 3 para 1-0-1-1 female admitted on the a.m. of 04/03/2021 at 39-4/7 weeks gestational age with an GREG of 04/06/2021 for induction of labor. 2. Group B strep negative 3. Patient declined genetic test 4. Risk factors for /labor include history of depression, history of for distress 5. Patient plans to breast-feed 6. Tdap given during . Patient is rubella immune. 7. Patient desires natural labor but is okay with epidural if necessary and desired. Plan: 1. Patient has signed consent for trial of labor after section for an attempt at vaginal after section. Also has signed consent for repeat section. The risks, benefits, limitations, alternatives of care and follow-up are discussed in detail prior to this time. 2. Natural labor at this time. Patient may decide to use epidural which will be implemented as desired. 3. Support breast-feeding decision 4. Will obtain labs because of history of previous . Also RPR, VINNY-19 testing as per protocol 5. We will obtain IV access and maintain this throughout labor 6. Near continuous monitoring 7. Anesthesia department and surgery department will be informed of patient's presence in labor and delivery. 8. Anticipate .
[2021-04-03] MEDS ORDERED: fentaNYL 100 MCG/2 ML SDV EPIDUR PRN (08:56)
[2021-04-03] MEDS ORDERED: ePHEDrine 50 MG/ML SDV IVPUSH PRN (08:56)
[2021-04-03] MEDS ORDERED: Bupivacaine/fentaNYL/NS 100 ML Bag EPIDUR SCH (09:00)
--- NOTE | 2021-04-03 09:03 | PCM.PREANE ---
Preanesthetic Assessment - Procedure Proposed Procedure: Epidural or potential repeat : Trial of labor after noted. - Anesthesia/Transfusion/Family Hx Anesthesia History: Prior Anesthesia Without Reaction Family History of Anesthesia Reaction: No Transfusion History: No Prior Transfusion(s) Intubation History: Unknown - Review of Systems General: No Symptoms Pulmonary: No Symptoms Cardiovascular: No Symptoms Gastrointestinal: No Symptoms (GERD) Neurological: No Symptoms, Headache Other: Reports: Easy Bruising - Physical Assessment NPO Status Date: 04/03/21 NPO Status Time: 09:00 Vital Signs: Last Vital Signs Temp 36.6 C 04/03/21 04:00 Pulse 69 04/03/21 04:00 Resp 14 04/03/21 04:00 BP 115/71 04/03/21 04:00 Pulse Ox 99 04/03/21 04:00 Height: 1.68 m Weight: 77.111 kg ASA Class: 2 Mental Status: Alert & Oriented x3 Airway Class: Mallampati = 2 Dentition: Reports: Normal Dentition Thyro-Mental Finger Breadths: 3 Mouth Opening Finger Breadths: 3 Lungs: Clear to Auscultation, Normal Respiratory Effort Cardiovascular: Regular Rate, Regular Rhythm, No Murmurs - Lab Values: Laboratory Last Values WBC 9.78 K/mm3 (3.98-10.04) 04/03/21 03:47 RBC 4.13 M/mm3 (3.98-5.22) 04/03/21 03:47 Hgb 12.2 gm/dl (11.2-15.7) 04/03/21 03:47 Hct 37.0 % (34.1-44.9) 04/03/21 03:47 MCV 89.6 fl (79.4-94.8) 04/03/21 03:47 MCH 29.5 pg (25.6-32.2) 04/03/21 03:47 MCHC 33.0 g/dl (32.2-35.5) 04/03/21 03:47 RDW Std Deviation 46.7 fL (36.4-46.3) H 04/03/21 03:47 Plt Count 184 K/mm3 (182-369) 04/03/21 03:47 MPV 9.9 fl (9.4-12.3) 04/03/21 03:47 Neut % (Auto) 69.9 % (34.0-71.1) 04/03/21 03:47 Lymph % (Auto) 18.4 % (19.3-51.7) L 04/03/21 03:47 Price % (Auto) 10.7 % (4.7-12.5) 04/03/21 03:47 Eos % (Auto) 0.4 (0.7-5.8) L 04/03/21 03:47 Baso % (Auto) 0.1 % (0.1-1.2) 04/03/21 03:47 Neut # (Auto) 6.83 K/mm3 (1.56-6.13) H 04/03/21 03:47 Lymph # (Auto) 1.80 K/mm3 (1.18-3.74) 04/03/21 03:47 Price # (Auto) 1.05 K/mm3 (0.24-0.36) H 04/03/21 03:47 Eos # (Auto) 0.04 K/mm3 (0.04-0.36) 04/03/21 03:47 Baso # (Auto) 0.01 K/mm3 (0.01-0.08) 04/03/21 03:47 SARS-CoV-2 RNA (LEOBARDO) Negative (NEGATIVE) 04/03/21 03:35 Blood Type O POSITIVE 04/03/21 03:47 Gel Antibody Screen Negative 04/03/21 03:47 Above labs reviewed and noted and within acceptable ranges to proceed with scheduled procedure. - Allergies Allergies/Adverse Reactions: Allergies Allergy/AdvReac Type Severity Reaction Status Date / Time No Known Allergies Allergy Verified 03/29/21 16:32 - Anesthesia Plan Pre-Op Medication Ordered: None - Acknowledgements Anesthesia Type Planned: Spinal, Epidural Pt an Appropriate Candidate for the Planned Anesthesia: Yes Alternatives and Risks of Anesthesia Discussed w Pt/Guardian: Yes Pt/Guardian Understands and Agrees with Anesthesia Plan: Yes PreAnesthesia Questionnaire - Past Health History Medical/Surgical History: Denies Medical/Surgical History Cardiovascular History: Reports: None Respiratory History: Reports: None Gastrointestinal History: Reports: GERD (with preg) 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: , Spontaneous Musculoskeletal History: Reports: None Psychiatric History: Reports: Depression Other Psychiatric History: used to take sertraline; stopped 06/2020; denies any complications following d/c Hematologic History: Reports: None - Past Surgical History Musculoskeletal Surgical History: Reports: None - History Comment History Comment: vits for home meds and tums prn - SUBSTANCE USE Tobacco Use Status *Q: Never Tobacco User Second Hand Smoke Exposure: No Recreational Drug Use History: No - HOME MEDS Home Medications: Home Meds Iron 65 mg PO BID 03/29/21 [History] Vits #93/Iron Fum/FA [ Formula Tablet] 1 tab PO DAILY 03/29/21 [History] - CURRENT (IN HOUSE) MEDS Current Meds: Current Medications Acetaminophen (Acetaminophen 325 Mg Tab) 650 mg PO Q4H PRN PRN Reason: Pain (Mild 1-3) and fever Last Admin: 04/03/21 04:33 Dose: 650 mg Documented by: Calcium Carbonate/Glycine (Calcium Carbonate 500 Mg Tab.Chew) 1,000 mg PO Q2H PRN PRN Reason: Indigestion Ephedrine Sulfate (Ephedrine 50 Mg/Ml Sdv) 5 mg IVPUSH ASDIRECTED PRN PRN Reason: Hypotension Fentanyl (Fentanyl 100 Mcg/2 Ml Sdv) 100 mcg EPIDUR Q3H PRN PRN Reason: Pain Fentanyl/Bupivacaine HCl (Bupivacaine/Fentanyl/Ns 100 Ml Bag) 100 ml EPIDUR ASDIRECTED KELLY Oxytocin/Lactated Ringer's (Pitocin In Lr 10 Units/1,000 Ml) 10 unit in 1,000 mls @ 500 mls/hr IV .CONTINUOUS KELLY Oxytocin/Lactated Ringer's (Pitocin In Lr 10 Units/1,000 Ml) 10 unit in 1,000 mls @ 12 mls/hr IV TITRATE KELLY; Protocol Last Titration: 04/03/21 08:55 Dose: 12 munits/min, 72 mls/hr Documented by: Lactated Ringer's (Ringers, Lactated) 1,000 mls @ 100 mls/hr IV ASDIRECTED KELLY Last Admin: 04/03/21 04:30 Dose: 100 mls/hr Documented by: Miscellaneous Medication (Phenylephrine Hcl In 0.9% Nacl 1 Mg/10 Ml Syringe) 0.1 mg IVPUSH Q10M PRN PRN Reason: Hypotension Nalbuphine HCl (Nalbuphine 10 Mg/1 Ml Vial) 10 mg IVPUSH Q2H PRN PRN Reason: Pain Ondansetron HCl (Ondansetron 4 Mg/2 Ml Sdv) 4 mg IVPUSH Q4H PRN PRN Reason: Nausea/Vomiting Ondansetron HCl (Ondansetron 4 Mg/2 Ml Sdv) 4 mg IVPUSH ONETIME PRN PRN Reason: Nausea/Vomiting Sodium Chloride (Sodium Chloride 0.9% 10 Ml Syringe) 10 ml FLUSH ASDIRECTED PRN PRN Reason: Keep Vein Open Discontinued Medications Lidocaine HCl (Lidocaine 1% 50 Ml Mdv) 50 ml INJECT ONETIME ONE Stop: 04/03/21 03:31
[2021-04-03] MEDS ORDERED: Oxytocin/Lactated Ringers 20 UNIT/1,000 ML BAG IV SCH (14:00)
--- NOTE | 2021-04-03 17:28 | PCM.SN.2 ---
- Free Text/Narrative Note: Delivery note: Stage I: Marleni is a 30-year-old 3 para 1-0-1-1 female admitted at 0300 hrs. on the a.m. of 04/03/2021 at 39-4/7 weeks gestational age with an GREG of 04/06/2021 for induction of labor. The process of induction of labor, its risks, benefits, limitations and follow-up along with alternatives including allowing for natural onset of labor discussed in detail with her and her . They appear to understand especially in light of her history of previous section and they wish to proceed. She underwent induction of labor with Pitocin. Cervix dilated from 1 to 2 cm up to 2 to 3 cm later in the a.m. at which time AROM with resultant clear amniotic fluid was undertaken. She contin ued to dilate progressively and at approximately 4 cm received an epidural for labor analgesia. At that same time it was somewhat difficult to determine the strength of the contractions therefore an IUPC was placed. Patient fairly rapidly went to complete cervical dilation by approximately 1630 hrs. on 04/03/2021. Epidural worked well and she had excellent results. Stage II: Marleni delivered a 3170 grams (7 pounds, 0 ounces), male infant with Apgars of 8 and 9 and a length of 20 inches in a left occiput anterior position. After external restitution, the anterior shoulder delivered without problems with gentle downward traction. The posterior shoulder delivered without concerns. The baby was placed on mom's abdomen and was dried with warm blanket. The nose and mouth were bulb suction. Umbilical cord was allowed to pulsate for approximately 3 minutes. It was then clamped x2 and cut by the baby's Father Norman. Cord blood was obtained. The umbilical cord had 3 vessels. Patient had a second-degree perineal laceration with slight vaginal extensions on either side laterally. This laceration was closed with 3-0 Monocryl in a routine fashion. Patient tolerated this well. Epidural analgesia and labor was used for perineal anesthesia for the repair. Stage III: The placenta delivered in a Barrientos presentation, appeared intact and complete and was discarded per patient desire. Patient plans to breast-feed. She had approximately 400 cc of blood loss. Condition: Good.
[2021-04-03] MEDS ORDERED: Benzocaine/Menthol 20%-0.5% Spray 56 GM Canister TOP PRN (19:06)
[2021-04-03] MEDS ORDERED: Witch Hazel Medicated Pads 40/Jar TOP PRN (19:06)
[2021-04-03] MEDS ORDERED: Docusate Sodium 100 MG Cap PO PRN (19:06)
[2021-04-03] MEDS ORDERED: Acetaminophen 325 MG Tab PO PRN (19:06)
[2021-04-03] MEDS: Ibuprofen 600 MG Tab PO PRN (21:31)
[2021-04-04] MEDS ORDERED: Ferrous Sulfate 324 MG Tab.EC PO SCH (07:00)
--- NOTE | 2021-04-04 07:31 | PCM48HPAN ---
Post Anesthesia Note - EVALUATION WITHIN 48HRS OF ANESTHETIC Vital Signs in Normal Range: Yes Patient Participated in Evaluation: Yes Respiratory Function Stable: Yes Airway Patent: Yes Cardiovascular Function Stable: Yes Hydration Status Stable: Yes Pain Control Satisfactory: Yes Nausea and Vomiting Control Satisfactory: Yes Mental Status Recovered: Yes Vital Signs: Last Vital Signs Temp 36.8 C 04/03/21 22:01 Pulse 79 04/03/21 22:01 Resp 16 04/03/21 22:01 BP 101/62 04/03/21 22:01 Pulse Ox 98 04/03/21 22:01 - COMMENTS/OBSERVATIONS Free Text/Narrative:: no anesthesia complications noted
--- NOTE | 2021-04-04 08:37 | PCM.SN.2 ---
- Free Text/Narrative Note: Post Progress Note PPD #1 Subjective: Doing well overall. Ambulating without difficulty this morning. She reports that in the evening after delivery she was having some lightheadedness and dizziness when she was first getting up out of bed. She has since been able to get up and walk around without difficulty. She denies any lightheadedness or dizziness this morning when she was getting up and going to the restroom. Lochia minimal. Voiding without difficulty. Tolerating regular diet without nausea or vomiting. Pain controlled with oral medications. She reports that she had a headache last evening and took ibuprofen for this. She has not used any pain medications this morning. Breast-feeding with minimal difficulty. Objective: Vitals: Vital Signs - 24 hr 04/03/21 22:01 Temperature 36.8 C Pulse, 79 Peripheral Respiratory 16 Rate Blood Pressure 101/62 O2 Sat by Pulse 98 Oximetry Physical Exam General: Alert and oriented, no acute distress Lungs: Clear to auscultation bilaterally Heart: Regular rate and rhythm Abdomen: Soft, minimal appropriate tenderness, non-distended, fundus midline, nontender, and 1 fingerbreadth below the umbilicus Extremities: No edema in bilateral lower extremities, no calf tenderness bilaterally Laboratory Results - last 24 hr 04/03/21 Range/Units 03:47 RPR Non-reactive (NONREACTIVE) ASSESSMENT: 30-year-old female -0-1-2 s/p vaginal delivery after section PPD #1, complicated by history of section PLAN: Doing well Breast-feeding with minimal difficulty. Assist as needed Lochia minimal. Continue to monitor for appropriate lochia. Continue routine care Anticipate discharge home today if infant is stable for discharge Cayden Gil MD 8:36 AM 04/04/2021
[2021-04-04] MEDS ORDERED: Prenatal Multivitamin with Calcium/Folic Acid/Iron Tab PO SCH (09:00)
[2021-04-04] MEDS: Ibuprofen 600 MG Tab PO PRN (09:16)
[2021-04-04 15:54] VITALS: BP 103/77; PULSE 78
--- NOTE | 2021-04-05 02:05 | PCM.DCSUM1 ---
Discharge Summary - Hospital Course Free Text/Narrative:: Delivery note: Stage I: Marleni is a 30-year-old 3 para 1-0-1-1 female admitted at 0300 hrs. on the a.m. of 04/03/2021 at 39-4/7 weeks gestational age with an GREG of 04/06/2021 for induction of labor. The process of induction of labor, its risks, benefits, limitations and follow-up along with alternatives including allowing for natural onset of labor discussed in detail with her and her . They appear to understand especially in light of her history of previous section and they wish to proceed. She underwent induction of labor with Pitocin. Cervix dilated from 1 to 2 cm up to 2 to 3 cm later in the a.m. at which time AROM with resultant clear amniotic fluid was undertaken. She continued to dilate progressively and at approximately 4 cm received an epidural for labor analgesia. At that same time it was somewhat difficult to determine the strength of the contractions therefore an IUPC was placed. Patient fairly rapidly went to complete cervical dilation by approximately 1630 hrs. on 04/03/2021. Epidural worked well and she had excellent results. Stage II: Marleni delivered a 3170 grams (7 pounds, 0 ounces), male infant with Apgars of 8 and 9 and a length of 20 inches in a left occiput anterior position. After external restitution, the anterior shoulder delivered without problems with gentle downward traction. The posterior shoulder delivered without concerns. The baby was placed on mom's abdomen and was dried with warm blanket. The nose and mouth were bulb suction. Umbilical cord was allowed to pulsate for approximately 3 minutes. It was then clamped x2 and cut by the baby's Father Norman. Cord blood was obtained. The umbilical cord had 3 vessels. Patient had a second-degree perineal laceration with slight vaginal extensions on either side laterally. This laceration was closed with 3-0 Monocryl in a routine fashion. Patient tolerated this well. Epidural analgesia and labor was used for perineal anesthesia for the repair. Stage III: The placenta delivered in a Barrientos presentation, appeared intact and complete and was discarded per patient desire. Patient plans to breast-feed. She had approximately 400 cc of blood loss. Condition: Good. Diagnosis: Stroke: No - Discharge Data Discharge Date: 04/04/21 Discharge Disposition: Home, Self-Care 01 Condition: Good - Referral to Home Health Primary Care Physician: Arleth De Leon MD - Discharge Diagnosis/Problem(s) (1) 39 weeks gestation of SNOMED Code(s): 45425505 ICD Code: Z3A.39 - 39 WEEKS GESTATION OF Status: Acute (2) Vaginal delivery SNOMED Code(s): 327944959 ICD Code: O80 - ENCOUNTER FOR FULL-TERM UNCOMPLICATED DELIVERY Status: Acute (3) Vaginal delivery following previous section, delivered SNOMED Code(s): 860656730 ICD Code: O34.219 - MATERNAL CARE FOR UNSP TYPE SCAR FROM PREVIOUS DEL Status: Acute (4) Second degree perineal laceration during delivery SNOMED Code(s): 2482875 ICD Code: O70.1 - SECOND DEGREE PERINEAL LACERATION DURING DELIVERY Status: Acute - Patient Summary/Data Complications: None Consults: None Hospital Course: Marleni Medina was admitted for elective induction of labor. On admission her cervix was dilated to 1-2 cm. She was GBS negative. She was given pitocin for induction of labor. She was given an epidural for anesthesia. She had artificial rupture of membranes with light bloodstained fluid. She had an IUPC placed to evaluate quality of contractions. She progressed to complete and began pushing. On 04/03/2021 she had a normal vaginal delivery after section of a live male infant at 16:53. Apgars of 8 & 9. Weight of 3170 g (6 pounds 15.8 ounces). Her course was uneventful. Her pain was well controlled and she had minimal lochia. She was ambulating, tolerating a regular diet and voiding normally. She was breast-feeding with minimal difficulty. She was afebrile and her hematocrit was 37.0 on admission. She desired to be discharged home in the afternoon of PPD #1. Her blood type is O+. - Patient Instructions Diet: Regular Diet as Tolerated Activity: Apply Ice, As Tolerated Activity, Other: Nothing in the vagina for 6 weeks Driving: May Drive Today Showering/Bathing: May Shower Notify Provider of: Fever, Increased Pain, Swelling and Redness, Drainage, Nausea and/or Vomiting Other/Special Instructions: Please contact your physician's office if you have heavy vaginal bleeding enough to soak a pad in less than an hour for several hours. Monitor for any signs of an infection in the breasts with severe pain or redness of the breast. - Discharge Plan *PRESCRIPTION DRUG MONITORING PROGRAM REVIEWED*: Not Applicable *COPY OF PRESCRIPTION DRUG MONITORING REPORT IN PATIENT MARTINE: Not Applicable Home Medications: Home Meds Iron 65 mg PO BID 03/29/21 [History] Vits #93/Iron Fum/FA [ Formula Tablet] 1 tab PO DAILY 03/29/21 [History] Acetaminophen [Tylenol] 650 mg PO Q4H PRN tablet 04/04/21 [Rx] Benzocaine/Menthol [Dermoplast Pain Relief [place]] 1 spray TOP ASDIRECTED PRN canister 04/04/21 [Rx] Docusate Sodium [Colace] 100 mg PO BID PRN cap 04/04/21 [Rx] Ibuprofen [Motrin] 600 mg PO Q4H PRN tablet 04/04/21 [Rx] witch Michelle [Tucks] 1 pad TOP ASDIRECTED PRN pad 04/04/21 [Rx] Patient Handouts: and Mastitis, Breast Pumping Tips, [id number], Care of a Perineal Tear, Care After Vaginal Delivery Referrals: Jonh Sutton MD [Physician] - (Follow-up in 2-3 weeks for routine visit or earlier as needed.) - Discharge Summary/Plan Comment DC Time >30 min.: No - Patient Data Vitals - Most Recent: Last Vital Signs Temp 36.9 C 04/04/21 15:02 Pulse 78 04/04/21 15:02 Resp 16 04/04/21 15:02 BP 103/77 04/04/21 15:02 Pulse Ox 98 04/04/21 15:02 Weight - Most Recent: 77.111 kg I&O - Last 24 hours: Intake & Output 04/04/21 04/04/21 04/05/21 14:59 22:59 06:59 Intake Total 170 Balance 170 Med Orders - Current: Current Medications Discontinued Medications Acetaminophen (Acetaminophen 325 Mg Tab) 650 mg PO Q4H PRN PRN Reason: Pain (Mild 1-3) and fever Last Admin: 04/03/21 09:34 Dose: 650 mg Documented by: Acetaminophen (Acetaminophen 325 Mg Tab) 650 mg PO Q4H PRN PRN Reason: mild pain or fever Benzocaine/Menthol (Benzocaine/Menthol 20%-0.5% [place] 56 Gm Canister) 0 gm TOP ASDIRECTED PRN PRN Reason: Perineal Comfort Measure Last Admin: 04/03/21 21:33 Dose: 1 canister Documented by: Bupivacaine HCl (Bupivacaine 0.25% 10 Ml Sdv) 10 ml .ROUTE .STK-MED ONE Stop: 04/03/21 00:01 Calcium Carbonate/Glycine (Calcium Carbonate 500 Mg Tab.Chew) 1,000 mg PO Q2H PRN PRN Reason: Indigestion Docusate Sodium (Docusate Sodium 100 Mg Cap) 100 mg PO BID PRN PRN Reason: Constipation Last Admin: 04/04/21 17:23 Dose: 100 mg Documented by: Ephedrine Sulfate (Ephedrine 50 Mg/Ml Sdv) 5 mg IVPUSH ASDIRECTED PRN PRN Reason: Hypotension Fentanyl (Fentanyl 100 Mcg/2 Ml Sdv) 100 mcg EPIDUR Q3H PRN PRN Reason: Pain Last Admin: 04/03/21 11:38 Dose: 100 mcg Documented by: Fentanyl/Bupivacaine HCl (Bupivacaine/Fentanyl/Ns 100 Ml Bag) 100 ml EPIDUR ASDIRECTED KELLY Last Admin: 04/03/21 11:38 Dose: 100 ml Documented by: Ferrous Sulfate (Ferrous Sulfate 324 Mg Tab.Ec) 324 mg PO WITHBREAKFAST KELLY Last Admin: 04/04/21 11:26 Dose: Not Given Documented by: Oxytocin/Lactated Ringer's (Pitocin In Lr 10 Units/1,000 Ml) 10 unit in 1,000 mls @ 500 mls/hr IV .CONTINUOUS KELLY Oxytocin/Lactated Ringer's (Pitocin In Lr 10 Units/1,000 Ml) 10 unit in 1,000 mls @ 12 mls/hr IV TITRATE KELLY; Protocol Last Titration: 04/03/21 13:20 Dose: 20 munits/min, 120 mls/hr Documented by: Lactated Ringer's (Ringers, Lactated) 1,000 mls @ 100 mls/hr IV ASDIRECTED KELLY Last Admin: 04/03/21 11:21 Dose: 100 mls/hr Documented by: Oxytocin/Lactated Ringer's (Pitocin In Lr 20 Units/1,000 Ml) 20 unit in 1,000 mls @ 60 mls/hr IV TITRATE KELLY; Protocol Last Admin: 04/03/21 14:26 Dose: 60 mls/hr Documented by: Ibuprofen (Ibuprofen 600 Mg Tab) 600 mg PO Q4H PRN PRN Reason: Mild pain or fever Last Admin: 04/04/21 09:16 Dose: 600 mg Documented by: Lidocaine HCl (Lidocaine 1% 50 Ml Mdv) 50 ml INJECT ONETIME ONE Stop: 04/03/21 03:31 Last Admin: 04/03/21 19:20 Dose: Not Given Documented by: Miscellaneous Medication (Phenylephrine Hcl In 0.9% Nacl 1 Mg/10 Ml Syringe) 0.1 mg IVPUSH Q10M PRN PRN Reason: Hypotension Nalbuphine HCl (Nalbuphine 10 Mg/1 Ml Vial) 10 mg IVPUSH Q2H PRN PRN Reason: Pain Ondansetron HCl (Ondansetron 4 Mg/2 Ml Sdv) 4 mg IVPUSH Q4H PRN PRN Reason: Nausea/Vomiting Last Admin: 04/03/21 11:16 Dose: 4 mg Documented by: Ondansetron HCl (Ondansetron 4 Mg/2 Ml Sdv) 4 mg IVPUSH ONETIME PRN PRN Reason: Nausea/Vomiting Prenat Multivit/Newberry/Iron/Folic Ac ( Multivitamin With Calcium/Folic Acid/Iron Tab) 1 each PO DAILY [facility] Last Admin: 04/04/21 11:26 Dose: Not Given Documented by: Sodium Chloride (Sodium Chloride 0.9% 10 Ml Syringe) 10 ml FLUSH ASDIRECTED PRN PRN Reason: Keep Vein Open Witch Michelle (Witch Michelle Medicated Pads 40/Jar) 1 pad TOP ASDIRECTED PRN PRN Reason: Perineal Comfort Measure Last Admin: 04/03/21 21:34 Dose: 1 container Documented by:
== END 2021-04-04 19:18 | disposition home or self-care (01) | DRG 807 ==
LOC: JD.OB 04-03 02:48 → OBSVTOIN 04-03 16:53 → JD.OB 04-03 16:53
PROVIDERS: ADMIT Obstetrics & Gynecology; ATTEND Obstetrics & Gynecology
PROC: 10E0XZZ Delivery of Products of Conception, External Approach (ICD-10-PCS; principal; 2021-04-03)
PROC: 10907ZC Drainage of Amniotic Fluid, Therapeutic from Products of Conception, Via Natural or Artificial Opening (ICD-10-PCS; 2021-04-03)
PROC: 3E033VJ Introduction of Other Hormone into Peripheral Vein, Percutaneous Approach (ICD-10-PCS; 2021-04-03)
PROC: 3E0R3BZ Introduction of Anesthetic Agent into Spinal Canal, Percutaneous Approach (ICD-10-PCS; 2021-04-03)
PROC: 10H07YZ Insertion of Other Device into Products of Conception, Via Natural or Artificial Opening (ICD-10-PCS; 2021-04-03)
DX: O70.1 Second degree perineal laceration during delivery (principal); Z37.0 Single live birth; Z3A.39 39 weeks gestation of pregnancy; Z20.822 Contact with and (suspected) exposure to COVID-19
CPT/HCPCS: 01967; 36415; 51702; 59025; 59409; 85025; 86592; 86850; 86900; 86901; A9270-GY; J2405; J2590; J3010; J3490; J7120; U0002

== ENCOUNTER 2021-12-26 16:53 | Emergency (ER) | payer OTHER ==
[2021-12-26 17:03] VITALS: BP 138/88; PULSE 69
[2021-12-26] MEDS ORDERED: Sodium Chloride 0.9% 10 ML Syringe FLUSH PRN (17:22)
== END 2021-12-26 19:27 | disposition home or self-care (01) ==
LOC: JD.ED 16:53
DX: O20.9 Hemorrhage in early pregnancy, unspecified (principal); Z3A.10 10 weeks gestation of pregnancy
CPT/HCPCS: 36415; 76801; 76801-26; 84702; 85025; 86900; 86901; 99284-25

== ENCOUNTER 2022-07-19 18:44 | Inpatient (IN) | payer OTHER ==
[~2022-07-19 18:44] MED LIST: Bupivacaine 0.25% 10 ML SDV ONE
[2022-07-19] MEDS ORDERED: Acetaminophen 325 MG Tab PO PRN (19:04)
[2022-07-19] MEDS ORDERED: Calcium Carbonate 500 MG Tab.Chew PO PRN (19:04)
[2022-07-19] MEDS ORDERED: Ondansetron 4 MG/2 ML SDV IVPUSH PRN (19:04)
[2022-07-19] MEDS ORDERED: Lidocaine 1% 50 ML MDV INJECT PRN (19:04)
[2022-07-19] MEDS ORDERED: Nalbuphine HCl 10 MG/ 1ML Amp IVPUSH PRN (19:04)
[2022-07-19] MEDS ORDERED: Oxytocin/Lactated Ringers 10 UNIT/1,000 ML BAG IV SCH ×2 (19:15)
[2022-07-19] MEDS: Lactated Ringers 1,000 ML IV SCH ×3 (19:53→22:05)
[2022-07-19] MEDS ORDERED: diphenhydrAMINE 50 MG/ML SDV IVPUSH PRN (20:34)
[2022-07-19] MEDS ORDERED: ePHEDrine 50 MG/ML SDV IVPUSH PRN (20:34)
[2022-07-19] MEDS ORDERED: fentaNYL 100 MCG/2 ML SDV EPIDUR PRN (20:34)
[2022-07-19] MEDS ORDERED: Bupivacaine/fentaNYL/NS 100 ML Bag EPIDUR PRN (20:34)
[2022-07-20] MEDS ORDERED: Witch Hazel Medicated Pads 40/Jar TOP PRN (02:12)
[2022-07-20] MEDS ORDERED: Benzocaine/Menthol 20%-0.5% Spray 78 GM Cannister TOP PRN (02:12)
[2022-07-20] MEDS ORDERED: Ibuprofen 600 MG Tab PO PRN (02:12)
[2022-07-20] MEDS ORDERED: Acetaminophen 325 MG Tab PO PRN (02:12)
[2022-07-20] MEDS ORDERED: Prenatal Multivitamin with Calcium/Folic Acid/Iron Tab PO SCH (09:00)
[2022-07-21 03:37] VITALS: BP 110/59; PULSE 73
== END 2022-07-21 09:07 | disposition home or self-care (01) | DRG 807 ==
LOC: UNDOADMOB 18:44 → JD.OB 18:44 → UNDOADMOB 23:50 → JD.OB 23:50 → OBSVTOIN 23:53 → JD.OB 23:53
PROVIDERS: ADMIT Obstetrics & Gynecology; ATTEND Obstetrics & Gynecology
PROC: 10E0XZZ Delivery of Products of Conception, External Approach (ICD-10-PCS; principal; 2022-07-19)
PROC: 0KQM0ZZ Repair Perineum Muscle, Open Approach (ICD-10-PCS; 2022-07-19)
PROC: 10907ZC Drainage of Amniotic Fluid, Therapeutic from Products of Conception, Via Natural or Artificial Opening (ICD-10-PCS; 2022-07-19)
PROC: 3E033VJ Introduction of Other Hormone into Peripheral Vein, Percutaneous Approach (ICD-10-PCS; 2022-07-19)
PROC: 3E0R3BZ Introduction of Anesthetic Agent into Spinal Canal, Percutaneous Approach (ICD-10-PCS; 2022-07-19)
PROC: 00HU33Z Insertion of Infusion Device into Spinal Canal, Percutaneous Approach (ICD-10-PCS; 2022-07-19)
DX: O99.62 Diseases of the digestive system complicating childbirth (principal); Z37.0 Single live birth; K21.9 Gastro-esophageal reflux disease without esophagitis; O70.1 Second degree perineal laceration during delivery; Z3A.39 39 weeks gestation of pregnancy
CPT/HCPCS: 01967; 36415; 51701; 59025; 59409; 85025; 86592; 86850; 86900; 86901; A9270-GY; J2590; J3010; J3490; J7120